=== PATIENT | male | born 1965 | race Caucasian/White ===

== ENCOUNTER 2021-07-14 10:56 | Outpatient (CLI) | payer BC | END 2021-07-14 10:57 | disposition home or self-care (01) | LOC: BICRAD 10:56 | PROVIDERS: ATTEND Nurse Practitioner Community Health | DX: L03.115 Cellulitis of right lower limb (principal); M77.9 Enthesopathy, unspecified ==

== ENCOUNTER 2023-03-29 18:21 | Emergency (ER) | payer BC, SELFPAY ==
[2023-03-29] MEDS ORDERED: Boostrix 0.5 ML (Tdap) VIAL (>/=7 yrs of age) ONE (19:34)
== END 2023-03-29 20:19 | disposition home or self-care (01) ==
LOC: ERS 18:21
DX: S81.851A Open bite, right lower leg, initial encounter (principal); S80.811A Abrasion, right lower leg, initial encounter; E11.9 Type 2 diabetes mellitus without complications; I10 Essential (primary) hypertension; W54.0XXA Bitten by dog, initial encounter; Z23 Encounter for immunization
CPT/HCPCS: 90471; 90715

== ENCOUNTER 2025-02-18 10:07 | Emergency (ER) | payer BC, OTHER ==
[2025-02-18 11:31] LABS: #Basophils 0.05 10x3/uL (0.0-0.2); #Eosinophils 0.13 10x3/uL (0.0-0.7); #Monocytes 0.46 10x3/uL (0.11-0.59); #Neutrophils 6.17 10x3/uL (1.40-6.50); %Basophils 0.6 % (0.0-1.0); %Eosinophils 1.5 % (0.0-10.0); %Lymphocytes 20.0 % (21.0-51.0); %Monocytes 5.3 % (0.0-10.0); %Neutrophils 71.6 % (42.0-75.0); Hematocrit 44.5 % (42.0-52.0); Hemoglobin 14.7 g/dL (14.0-18.0); Mean Corpuscular Hemoglobin 29.0 pg (27.0-31.0); Mean Corpuscular Volume 87.8 fL (78.0-98.0); Platelet Count 204 10x3/uL (130-400); Red Blood Cell (RBC) Count 5.07 mill/uL (4.70-6.10); White Blood Cell (WBC) Count 8.62 10x3/uL (4.8-10.8)
[2025-02-18 14:16] LABS: ALT (SGPT) 41 U/L (Less than 45); AST (SGOT) 44 U/L (11-34); Albumin 3.9 g/dL (3.1-4.5); Alkaline Phosphatase 83 U/L (40-110); Anion Gap 12 mmol/L (10-20); BUN (Urea Nitrogen) 16 mg/dL (8.4-25.7); Bilirubin, Total 0.9 mg/dL (0.3-1.2); Calc. Creatinine Clearance 0 mL/min (70-130); Calcium 9.7 mg/dL (7.8-10.44); Carbon Dioxide 25 mmol/L (23-31); Chloride 102 mmol/L (98-107); Globulin 3.7 g/dL (2.4-3.5); Glucose 228 mg/dL (80-115); Potassium 3.6 mmol/L (3.5-5.1); Sodium 135 mmol/L (136-145)
== END 2025-02-18 16:01 | disposition home or self-care (01) ==
LOC: ERS 10:07
DX: R05.9 Cough, unspecified (principal); R06.2 Wheezing; I10 Essential (primary) hypertension; E11.9 Type 2 diabetes mellitus without complications; E03.9 Hypothyroidism, unspecified; Z79.84 Long term (current) use of oral hypoglycemic drugs; Z79.890 Hormone replacement therapy
CPT/HCPCS: 71045; 71275; 80053; 84443; 84484; 85025; 93005; 96372; J2919